=== PATIENT | male | born 1950 | race Caucasian/White ===

== ENCOUNTER → 2019-10-21 | Outpatient (CLI) | payer MEDICARE ==
--- NOTE | 2019-10-25 19:56 | SLEEPCENT ---
DATE OF PROCEDURE: 10/21/2019 Nocturnal polysomnography was performed for evaluation of sleep physiology in this patient with a history of excessive somnolence and nonrestorative sleep. A prior remote history of obstructive sleep apnea syndrome. 8 hours and 20 minutes of data were reviewed. There were 212 minutes of sleep identified. Sleep latency was prolonged at 141 minutes. REM latency was normal at 78 minutes. Sleep architecture was fragmented with periods of wake and poor progression. There were two REM cycles noted. Overall sleep efficiency was only 43%. The patient's electrocardiogram showed a sinus rhythm with an average heart rate of 52 beats per minute. EEG showed fairly normal waveforms for awake and sleep. There were 90 respiratory events identified of 10 seconds in duration or greater for an apnea-hypopnea index of 25.5. The events were primarily obstructive, not exclusive to sleep stage, more frequent in the supine posture. Arousals from respiratory events occurred 15.8 times per hour and oxygen desaturations were seen into the 80s. The remaining measures of sleep physiology were normal. IMPRESSION Obstructive sleep apnea syndrome (G47.33). Apnea-hypopnea index 25.5. RECOMMENDATIONS The patient should be encouraged to return to the sleep disorder center for pressure therapy. In the interim, alcohol and sedative avoidance should be practiced and caution exercised during the operation of motor vehicles.
== END ==
LOC: M SLEEP 19:30
PROVIDERS: ATTEND Nurse Practitioner Family
DX: G47.33 Obstructive sleep apnea (adult) (pediatric) (principal)

== ENCOUNTER → 2020-01-02 | Outpatient (CLI) | payer MEDICARE ==
--- NOTE | 2020-01-04 11:57 | SLEEPCENT ---
NOCTURNAL POLYSOMNOGRAPHY CPAP TITRATION ORDERED BY: ELIZABETH Whitfield DATE OF STUDY: 01/02/2020 Nocturnal polysomnography was performed for the titration of pressure therapy in this patient with obstructive sleep apnea syndrome. Apnea-hypopnea index 25.5. For testing a ResMed full face mask of medium size was used, 4 cm of water pressure were applied to the circuit the lights were extinguished. 7 hours and 13 minutes of data were reviewed. There were 211 minutes of sleep identified. Sleep latency was prolonged at 79 minutes. REM latency was prolonged at 296 minutes. Sleep architecture improved late in the study but there were periods of awake resulting in reduced sleep efficiency of 49.5%. The patient's electrocardiogram showed a sinus rhythm with an average heart rate of 48 beats per minute. EEG showed normal waveforms for awake and sleep. Some mild alpha intrusion is noted. Respiratory events prompted increase in CPAP pressure. Optimal sleep was seen in a CPAP pressure of +10. Remaining measures of sleep physiology were normal. IMPRESSION: Obstructive sleep apnea syndrome (G47.33). RECOMMENDATION: Nightly use of pressure therapy 10 cm of water.
== END ==
LOC: M SLEEP 19:43
PROVIDERS: ATTEND Nurse Practitioner Family
DX: G47.33 Obstructive sleep apnea (adult) (pediatric) (principal)